=== PATIENT | female | born 1985 | race Caucasian/White ===

== ENCOUNTER 2020-09-06 18:11 | Emergency (ER) | payer BC ==
[~2020-09-06] VITALS: Ht 160 cm; Wt 90.0 kg
--- NOTE | 2020-09-06 18:17 | PHYS DOC ---
Past History Past Medical History: Asthma General Adult EDM: Chief Complaint: SHORTNESS OF BREATH HPI: HPI: ".. I having my seasonal asthma flair..".."I noticed I really get wheezing with my mom is vacuum up those lady bugs..( Faro[place] bettles).." Patient is a 34 year old female who presents with above hx and complaints asthma exacerbation. Patient states she has seasonal asthma exacerbations. This year seems worse with onset of fall. Patient does use inhalers, Maxi-Myst as well as steroid inhaler. Patient has noticed some increased GERD and reflux.. Patient has never been intubated for asthma. She has never been admitted to the hospital overnight for asthma. Patient does not know her best peak flow. Patient's never had PFTs. No recent fever or chills. No productive sputum. Has not had oral steroids in the past 6 months. Patient has not had flu vaccination this season. Has not had Pneumovax vaccinations. No recent travel outside the [place] area. No specific ill contacts. Patient normally follows with [facility] for care. Review of Systems: Review of Systems: Constitutional: Denies fever or chills Eyes: Denies change in visual acuity HENT: Denies nasal congestion or sore throat Respiratory: History of cough and increased wheezing Cardiovascular: Denies chest pain or edema GI: Denies abdominal pain, nausea, vomiting, bloody stools or diarrhea . History of increased reflux : Denies dysuria Musculoskeletal: Denies back pain or joint pain Integument: Denies rash Neurologic: Denies headache, focal weakness or sensory changes Endocrine: Denies polyuria or polydipsia Lymphatic: Denies swollen glands Psychiatric: Denies depression or anxiety Family History: Family History: Noncontributory Current Medications: Current Meds: See nursing for home meds Allergies: Allergies: No known drug allergies Physical Exam: PE: Constitutional: Well developed, well nourished, no acute distress, non-toxic appearance. [] HENT: Normocephalic, atraumatic, bilateral external ears normal, oropharynx moist, mild postnasal drip, no oral exudates, nose slightly swollen turbinates with clear rhinorrhea Eyes: PERRLA, EOMI, conjunctiva normal, no discharge. [] Neck: Normal range of motion, no tenderness, supple, no stridor. [] Cardiovascular:Heart rate regular rhythm, no murmur [] Lungs & Thorax: Bilateral breath sounds equal apex with few scattered wheezes on auscultation [] Abdomen: Bowel sounds normal, soft, no tenderness, no masses, no pulsatile masses. [] Skin: Warm, dry, no erythema, no rash. [] Back: No tenderness, no CVA tenderness. [] Extremities: No tenderness, no cyanosis, no clubbing, ROM intact, no edema. No cording in legs. Neurologic: Alert and oriented X 3, normal motor function, normal sensory function, no focal deficits noted. [] Psychologic: Affect anxious, judgement normal, mood normal. [] EKG: EKG: [] Radiology/Procedures: Radiology/Procedures: [] Heart Score: Risk Factors: Risk Factors: DM, Current or recent (<one month) smoker, HTN, HLP, family history of CAD, obesity. Risk Scores: Score 0 - 3: 2.5% MACE over next 6 weeks - Discharge Home Score 4 - 6: 20.3% MACE over next 6 weeks - Admit for Clinical Observation Score 7 - 10: 72.7% MACE over next 6 weeks - Early Invasive Strategies Course & Med Decision Making: Course & Med Decision Making Pertinent Labs and Imaging studies reviewed. (See chart for details) Patient continue her current asthma meds and allergy meds. To add prednisone 50 mg a day for the next 5 days. Add Pepcid 20 mg twice a day. Recommend follow-up with primary care. Consider getting PFTs at some point. Recommend patient update flu vaccination as well as Pneumovax. Recommend patient obtain a peak flow meter to document peak flows pre and post treatments in the morning. Keep a record of this with your doctor. Developed a asthma exacerbation plan with her primary care. Patient return if any concerns. Impression: 1. Asthma exacerbation 2. Reflux 3. Seasonal allergies [] Dragon Disclaimer: Dragon Disclaimer: This electronic medical record was generated, in whole or in part, using a voice recognition dictation system. Departure Departure: Referrals: KELLI ALEJANDRO (PCP) Scripts Famotidine (PEPCID) 20 Mg Tablet 20 MG PO BID for GERD, steroid use for 30 Days, #60 TAB Prov: SABIHA COPE MD 09/06/20 Prednisone (PREDNISONE) 50 Mg Tablet 50 MG PO DAILY for asthma exacerbation for 5 Days, #5 TAB Prov: SABIHA COPE MD 09/06/20 Loren Disclaimer This chart was dictated in whole or in part using Voice Recognition software in a busy, high-work load, and often noisy Emergency Department environment. It may contain unintended and wholly unrecognized errors or omissions. SABIHA COPE MD Sep 06, 2020 18:17
[2020-09-06 18:29] VITALS: BP 128/85
[2020-09-06] MEDS ORDERED: PRED50TA PO (18:47)
[2020-09-06] MEDS ORDERED: FAMO-63 PO (18:47)
[2020-09-06] MEDS ORDERED: IPRATRPIUM/ALBUTEROL 0.5/2.5MG 3 ML NEBU. NEB ONE (19:15)
[2020-09-06] MEDS ORDERED: FAMOTIDINE 20 MG TABLET PO ONE (19:15)
[2020-09-06] MEDS ORDERED: methylPREDNISolone ACETATE 40 MG/ML VIAL. IM ONE (19:15)
== END 2020-09-06 19:22 | disposition home or self-care (01) ==
LOC: ER 18:11
DX: J45.901 Unspecified asthma with (acute) exacerbation (principal); K21.9 Gastro-esophageal reflux disease without esophagitis
CPT/HCPCS: 94640; 96372; 99283; J1030